=== PATIENT | female | born 1995 | race Caucasian/White ===

== ENCOUNTER 2019-11-20 19:02 | Inpatient (IN) | payer OTHER, SELFPAY ==
[2019-11-20] VITALS (18 sets, daily range): BP systolic 102–131; BP diastolic 41–83; PULSE 76–99; TEMP 36.3; BMI 44.6
[2019-11-20 19:53] LABS: Basophils Percent Auto 0.3 % (0.2-1.2); Eosinophils Absolute Auto 0.1 K/mm3 (0-0.3); Eosinophils Percent Auto 0.9 % (0-4.4); Hematocrit 34.5 % (37.0-47.0); Hemoglobin 11.1 g/dL (12.0-15.0); Immature Granulocyte Absolute 0.12 K/mm3 (0.00-0.031); Immature Granulocyte Percent A 0.9 % (0-0.5); Lymphocytes Absolute Auto 2.76 K/mm3 (0.9-3.2); Lymphocytes Percent Auto 20.5 % (18.3-44.2); Mean Corpuscular HGB Conc 32.2 g/dl (32-36); Mean Corpuscular Hemoglobin 26.9 pg (26-34); Mean Corpuscular Volume 83.5 fl (80-100); Mean Platelet Volume 11.3 fl (7.4-10.4); Monocytes Absolute Auto 0.6 K/mm3 (0.1-0.6); Monocytes Percent Auto 4.7 % (2.6-8.5); Neutrophils Absolute Auto 9.8 K/mm3 (1.3-6.7); Neutrophils Percent Auto 72.7 % (45.5-73.1); Platelet Count Result 216 k/mm3 (150-375); Red Blood Count 4.13 M/mm3 (4.2-5.4); Red Cell Distribution Width 14.8 % (11.5-14.5); White Blood Count 13.5 K/mm3 (4.5-10.0)
[2019-11-20] MEDS: MISOPROSTOL 25 MCG TABLET VAGINAL (20:01)
[2019-11-20 20:45] LABS: HIV 1/2 Ab P24 Ag Result Negative (Negative)
[2019-11-20 20:54] LABS: Rubella IgG Antibody 14.2 IU/ML
--- NOTE | 2019-11-20 21:44 | LDADM ---
This patient, SID CARRANZA, was admitted to Labor/Delivery/Recovery 106 on 11/20/19 at 19:02. Plans for labor, pain management and were discussed with patient. Patient/family oriented to hospital policies and general routines including ID bracelet, bed and alarms, visiting hours, pain management, procedures, bathroom and other care routines, personal items, smoking policy, room service/diet and guest tray routines, security routines, and visiting hours. Patient/Family are encouraged to report perceived risks to care and to ask questions if they do not understand what they are told or what they should do. See OBIX for further documentation.
[2019-11-20 22:17] LABS: Hepatitis B Surface Antigen Negative (Negative)
[2019-11-21] VITALS (232 sets, daily range): BP systolic 86–159; BP diastolic 48–105; PULSE 68–186; TEMP 36.2–37.3; O2SAT 92–100
[2019-11-21] MEDS: OXYTOCIN 30 UNITS/NS 500 ML 30 UNITS/500 ML BAG IV CONT (00:25)
[2019-11-21] MEDS: LACTATED RINGERS 1,000 ML 125 ML IV CONT ×5 (00:26→19:32)
--- NOTE | 2019-11-21 07:36 | WPDHPUPDATE1 ---
History and Physical Update Update Date/Time: 11/21/19 07:36 24 yo G1 at 40w GA who presents for IOL for dates. She endorses good FM. She denies vaginal bleeding or LOF. History and Physical has been reviewed, including an updated exam of the patient. There are NO changes in the patient's condition. Risks, benefits, and alternatives have been discussed and questions answered. Patient agrees to proceed with procedure. A/P: 24 yo G1 at 40w admit to L&D routine admission orders FHT category 1 Rh+ GBS neg cvx 1 on admission, received cytotec PV x1 continue with pitocin for labor induction
[2019-11-21 08:26] LABS: Rapid Plasma Reagin Non-Reactive (NonReactive)
--- NOTE | 2019-11-21 12:03 | WPDANESEPPF ---
Anes - Initial Pre Proc Eval Date/Time: 11/21/19 12:03 Surgeon: Jefferson Lara MD Pre Op Diagnosis: Induction Patient Data Age: 24 Gender: F Height: 1.63 m Weight: 118 kg Last Vital Signs Temp 36.5 C 11/21/19 09:10 Pulse 83 11/21/19 12:00 BP 118/85 11/21/19 12:00 Allergies Allergy/AdvReac Type Severity Reaction Status Date / Time No Known Allergies Allergy Verified 10/31/19 14:29 Home Medications Medication Instructions Recorded Confirmed Type PNV cmb#95-ferrous fumarate-FA 1 tablet PO DAILY 10/31/19 10/31/19 History [] ergocalciferol (vitamin D2) 50,000 unit PO WEEKLY 10/31/19 10/31/19 History [Vitamin D2] Laboratory Tests 11/20/19 11/20/19 11/20/19 19:33 19:33 19:33 WBC 13.5 K/mm3 H K/mm3 (4.5-10.0) RBC 4.13 M/mm3 L M/mm3 (4.2-5.4) Hgb 11.1 g/dL L g/dL (12.0-15.0) Hct 34.5 % L % (37.0-47.0) MCV 83.5 fl fl (80-100) MCH 26.9 pg pg (26-34) MCHC 32.2 g/dl g/dl (32-36) RDW 14.8 % H % (11.5-14.5) Plt Count 216 k/mm3 k/mm3 (150-375) MPV 11.3 fl H fl (7.4-10.4) Immature Gran % (Auto) 0.9 % H % (0-0.5) Neut % (Auto) 72.7 % % (45.5-73.1) Lymph % (Auto) 20.5 % % (18.3-44.2) [place] % (Auto) 4.7 % % (2.6-8.5) Eos % (Auto) 0.9 % % (0-4.4) Baso % (Auto) 0.3 % % (0.2-1.2) Lymph # (Auto) 2.76 K/mm3 K/mm3 (0.9-3.2) [place] # (Auto) 0.6 K/mm3 K/mm3 (0.1-0.6) Eos # (Auto) 0.1 K/mm3 K/mm3 (0-0.3) Baso # (Auto) 0.0 K/mm3 K/mm3 (0.0-0.1) Abs Immat Gran (auto) 0.12 K/mm3 H K/mm3 (0.00-0.031) Absolute Neuts (auto) 9.8 K/mm3 H K/mm3 (1.3-6.7) Absolute Nucleated RBC 0.0 K/mm3 K/mm3 (0.0-0.012) Nucleated RBC % 0.0 % % (0.0-0.2) RPR Non-reactive (NonReactive) Hep Bs Antigen HIV 1&2 Ab/P24 Ag 4thGn Negative (Negative) Rubella IgG Antibody Blood Type Antibody Screen 11/20/19 11/20/19 11/20/19 19:33 19:33 19:33 WBC RBC Hgb Hct MCV MCH MCHC RDW Plt Count MPV Immature Gran % (Auto) Neut % (Auto) Lymph % (Auto) [place] % (Auto) Eos % (Auto) Baso % (Auto) Lymph # (Auto) [place] # (Auto) Eos # (Auto) Baso # (Auto) Abs Immat Gran (auto) Absolute Neuts (auto) Absolute Nucleated RBC Nucleated RBC % RPR Hep Bs Antigen Negative (Negative) HIV 1&2 Ab/P24 Ag 4thGn Rubella IgG Antibody 14.2 IU/ML IU/ML (10 - ) Blood Type A Positive Antibody Screen Negative Patient hx anesthesia problems: none Family hx anesthesia problems: none [facility] Family History Family History (Updated 10/31/19 @ 14:31 by Miles Ochoa RN) Father Diabetes mellitus Mother Bipolar 1 disorder Social History Social History Smoking status: Never smoker Substance use: never Gender identity (if verbalized by the patient): Female Spiritual care concerns: No Anes - Eval Final PreProcedure Day of Procedure 11/21/19 12:03 Patient weight: obese Heart: regular rate and rhythm Lungs: clear to auscultation and normal air movement Airway: Mallampati scale class II Neurological: alert and oriented Last oral intake: >/= 8 hours ASA classification: II Emergent: no Anesthetic plan: proceed Anesthesia type and monitoring: regional epidural Informed Consent: The patient's anesthetic plan and its attendant risks and benefits were discussed with the patient/family/POA. Questions were solicited and answers provid
--- NOTE | 2019-11-21 12:34 | P.PNOB_ITS ---
OB - PN: Subj Subjective Date/time seen: 11/21/19 12:34 Interval history: cx 80/-2 arom clear fhts reassuring OB - PN: Obj Data Labs CBC & Chem 7: 11/20/19 19:33 Labs: Laboratory Results - last 24 hr 11/20/19 11/20/19 11/20/19 19:33 19:33 19:33 WBC 13.5 H RBC 4.13 L Hgb 11.1 L Hct 34.5 L MCV 83.5 MCH 26.9 MCHC 32.2 RDW 14.8 H Plt Count 216 MPV 11.3 H Immature Gran % (Auto) 0.9 H Neut % (Auto) 72.7 Lymph % (Auto) 20.5 [place] % (Auto) 4.7 Eos % (Auto) 0.9 Baso % (Auto) 0.3 Lymph # (Auto) 2.76 [place] # (Auto) 0.6 Eos # (Auto) 0.1 Baso # (Auto) 0.0 Abs Immat Gran (auto) 0.12 H Absolute Neuts (auto) 9.8 H Absolute Nucleated RBC 0.0 Nucleated RBC % 0.0 RPR Non-reactive Hep Bs Antigen HIV 1&2 Ab/P24 Ag 4thGn Negative Rubella IgG Antibody Blood Type Antibody Screen 11/20/19 11/20/19 11/20/19 19:33 19:33 19:33 WBC RBC Hgb Hct MCV MCH MCHC RDW Plt Count MPV Immature Gran % (Auto) Neut % (Auto) Lymph % (Auto) [place] % (Auto) Eos % (Auto) Baso % (Auto) Lymph # (Auto) [place] # (Auto) Eos # (Auto) Baso # (Auto) Abs Immat Gran (auto) Absolute Neuts (auto) Absolute Nucleated RBC Nucleated RBC % RPR Hep Bs Antigen Negative HIV 1&2 Ab/P24 Ag 4thGn Rubella IgG Antibody 14.2 Blood Type A Positive Antibody Screen Negative OB - PN A/P Time Spent With Patient Time: Total time spent is greater than 50% in coordination of care (as documented) at patient's floor/unit and/or counseling patient:
[2019-11-21] MEDS: SODIUM CHLORIDE 0.9% IV 300 ML 600 ML I-UTERINE (14:00)
--- NOTE | 2019-11-21 17:03 | PM.OBPNLAB ---
Pain Control Date/time seen: 11/21/19 17:03 Pain control: epidural Comments: patient is tolerating her induction well. She is still hopeful for a vaginal . She reports adequate pain control with her epidural. Pelvic Exam Dilation (cm): 5 Effacement (%): 80 station: -1 Amniotic membrane status: Ruptured Contractions Monitor mode: Internal Contraction frequency: 2 Contraction pattern: Regular Status status: Category l Comments: recurrent early decelerations noted. FHT still with moderate variability and accelerations. Assessment and Plan Pitocin rate (mU/min): 12 Assessment: induction ongoing Plan: continuous present management Comments: FHT responded well to amnioinfusion perviously. Will give another amnioinfusion. Discussed plan of care and continued labor induction. The patient and myself are still hopeful for a vaginal . Explained that the induction may take time. Pt s/p AROM at 1200. Will monitor for s/sx of chorio.
--- NOTE | 2019-11-21 19:52 | P.PNOB_ITS ---
Pain Control Date/time seen: 11/21/19 19:52 Pain control: epidural Pelvic Exam Dilation (cm): 6 Effacement (%): 80 station: -1 Amniotic membrane status: Ruptured Contractions Monitor mode: Internal Contraction frequency: 2 Contraction pattern: Regular Status status: Category ll Comments: recurrent early decelerations. occasional late deceleration, non- recurrent. Moderate variability. occasional acceleration Assessment and Plan Pitocin rate (mU/min): 8 Assessment: induction ongoing Plan: continuous present management
[2019-11-22] VITALS (37 sets, daily range): BP systolic 108–141; BP diastolic 58–127; PULSE 78–150; RESP 14–16; TEMP 36.4–38.1; O2SAT 99–100
[2019-11-22] MEDS: OXYTOCIN 30 UNITS/NS 500 ML 30 UNITS/500 ML BAG 125 UNITS IV CONT (01:29)
--- NOTE | 2019-11-22 01:50 | PM.OBPRVD ---
OB - Delivery Note Procedure Procedure: Patient pushed for a spontaneous vaginal delivery. The fetus was delivered atraumatically and placed on the maternal abdomen. A nuchal cord x1 was noted and reduced after delivery. The cord was clamped and cut. The cord was double clamped and cut and a segment of cord was collected for cord gases. Cord blood was collected for blood type and Coomb's testing. The placenta delivered spontaneously and was noted to be intact. The perineum was inspected and there was a 1st degree perineal laceration and bilateral labial lacerations. The lacerations was repaired with 3-0 vicryl in the usual fashion. There was an area on the 1st degree laceration that required 2 figure of eight sutures to obtain hemostasis. The uterus was firm and good hemostasis was noted. The patient and fetus were stable in the delivery room. Induction method: per misoprostol protocol Delivery augmentation: pitocin Delivery monitor: internal FHT and internal uterine Route of delivery: Episiotomy description: None Laceration description: Perineal - 1st Degree Delivery repair: vicryl Specimen: No Estimated blood loss (mL): 250 Anesthesia type: Epidural Disposition: floor () Complications: No immediate complications Baby Date of : 11/22/19 Weeks of gestation at delivery: 40 gender: Male Weight (pounds): 8 Weight (ounces): 13 presentation: vertex position: Right Occiput Anterior Placenta delivery description: Spontaneous cord vessel description: Nuchal Cord score one minute: 9 score five minutes: 9
[2019-11-22] MEDS: IBUPROFEN 600 MG TABLET PO ×2 (03:05→09:17)
[2019-11-22] MEDS: BENZOCAINE 20% AER SPR (*SP) 56 GM CAN 1 SPRAY TOPICAL (03:06)
[2019-11-22] MEDS: WITCH HAZEL 40 PADS 1 PAD TOPICAL (03:06)
[2019-11-22] MEDS: MULTIVIT/MIN/PREN/FOL AC/IRON TABLET 1 TAB PO (09:16)
[2019-11-22] MEDS: ACETAMINOPHEN 325 MG TABLET 650 MG PO (14:01)
--- NOTE | 2019-11-22 16:10 | PC.NURSE ---
Consulted with patient, mother states would not latch and has been using a nipple shield for all feedings. Mother will attempt first if unable to latch she will use shield, allowing infant to nurse several minutes then removed shield and attempt to latch without. Discussed nipple shield precautions and possible complications. Instructions given on application and cleaning of nipple shield Reviewed infant feeding cues, frequencies, durations of feeding, milk supply, feeding/elimination flow sheet and signs of adequate intake. Demonstrated stimulation techniques to wake for feeding. Assisted with infant to breast with nipple shield. Reviewed positioning/alignment in football, holding breast in C hold and guided asymmetrical latch on. Infant was able to latch correctly nursing with long draws and freq/occasional swallowing noted. Reviewed milk production and need for additional stimulation for milk supply and need to initiate pumping. Suggested feeding plan to attempt to breast every three hours, before if feeding cues noted. Allow to nurse up to 20 min per breast. Discussed required output, has not had a wet diaper since . Reviewed has a full 24 hours for output. Advised ICP may request infant be supplemented until output increases. Stressed to continue to put infant to breast and then pump. Instructed mother to call out for RN assistance if she is unable to latch infant for feeding or she has discomfort with nursing. Instructed feeding should be initiated three hours from start of last feeding or if feeding cues are noted before. Mother voiced understanding of information shared.
--- NOTE | 2019-11-22 17:59 | PC.NURSE ---
Breast pump provided due to nipple shield use. Instructions given on breast pump care and usage, pumping schedule, nipple care, and collection and storage of breast milk. Encouraged [id number], breast massage and manual expression to stimulate supply. Assessed patient for correct flange size, placement and draw. Patient verbalizes and demonstrates understanding of instructions.
[2019-11-23] MEDS: IBUPROFEN 600 MG TABLET PO (05:16)
[2019-11-23 05:55] LABS: Hematocrit 27.4 % (37.0-47.0); Hemoglobin 8.6 g/dL (12.0-15.0)
--- NOTE | 2019-11-23 08:46 | PM.OBPNVD ---
OB - PN: Subj Subjective Date/time seen: 11/23/19 08:46 Narrative: Pain OK. Would like to go home. OB - PN: Obj Data Labs CBC & Chem 7: 11/23/19 05:25 Labs: Laboratory Results - last 24 hr 11/23/19 05:25 Hgb 8.6 L Hct 27.4 L OB - PN A/P Plan Comments: A: PPD#1, doing well. P: Home to f/u 6 weeks. Exam Psych: Other: AVSS ABD soft, nontender, fundus firm EXT nontender
--- NOTE | 2019-11-23 08:48 | PM.OBDSVD ---
OB - DS: Summary OB Procedures : None OB Procedures Intrapartum: Spontaneous Vag Delivery OB Procedures: : None Time Spent with Patient Time attestation: Total time spent providing and/or coordinating discharge services: DS: Data Data Completed and Pending Pending studies at discharge: Pending at discharge 11/22/19 01:26 Surgical [PTH] Routine Labs on day of discharge: Labs from last 24 hours 11/23/19 05:25 Hgb 8.6 L Hct 27.4 L Discharge Plan Discharge Attending physician on discharge: Rafael Goss Discharging Clinician: Rafael Goss Patient Disposition: Home, Self-Care Activity: pelvic rest Diet: regular Discharge Instructions: Call or return if temperature above 100.4? F, increased abdominal pain, increased vaginal bleeding or any new problems. Stand Alone Forms: General Discharge Information Follow-up/Referrals: Rafael Goss MD [Physician] - (Follow up Dr. Lara in 6 weeks.) Discharge Medications: New ibuprofen 600 mg tablet 600 mg PO Q6H PRN (Reason: cramps) Qty: 30 RF: 0 No Action PNV cmb#95-ferrous fumarate-FA [] 28 mg iron- 800 mcg Tablet 1 tablet PO DAILY RF: 0 ergocalciferol (vitamin D2) [Vitamin D2] 1,250 mcg (50,000 unit) Capsule 50,000 unit PO WEEKLY RF: 0 Date of admission: 11/20/19 19:02 Primary Care Provider: Herman Matute Admitting Provider: Jefferson Lara Attending physician on admission: Jefferson Lara
[2019-11-23 08:50] VITALS: BP 111/69; PULSE 86; RESP 18; TEMP 36.2
[2019-11-23] MEDS: POLYSACCHARIDE IRON COMPLEX 150 MG CAPSULE PO (09:33)
[2019-11-23] MEDS: MULTIVIT/MIN/PREN/FOL AC/IRON TABLET 1 TAB PO (09:34)
[2019-11-23] MEDS: DOCUSATE SODIUM 100 MG CAPSULE PO (09:34)
--- NOTE | 2019-11-23 13:20 | PC.NURSE ---
Patient viewed the discharge video Mother & Baby Care, The First Two Weeks . Patient was given the opportunity and encouraged to ask questions. Patient verbalized understanding of information shared and has been given the mother/baby guide for home reference.
--- NOTE | 2019-11-23 15:45 | WPDANLDPN2 ---
Anes-Prog Note L&D Date/Time: 11/23/19 15:45 Comfortable throughout: labor and delivery Neuraxial method: epidural Epidural/Spinal procedure site: clean & non-tender Neuro status: Neuro function grossly intact. Cardiovascular status: normal Respiratory status: normal Airway patency: baseline Mental status: baseline Post-Op hydration status: normal Vital Signs: Last Vital Signs Temp 36.2 C L 11/23/19 08:50 Pulse 86 11/23/19 08:50 Resp 18 11/23/19 08:50 BP 111/69 11/23/19 08:50 Pulse Ox 99 11/22/19 21:40 Pain score (VAS): 0/10. Patient resting in bed at time of assessment, appears comfortable. Support person at bedside. I/O: Intake & Output 11/22/19 11/23/19 11/23/19 23:59 07:59 15:59 Intake Total 240 Balance 240 Post-procedural complaints: none Patient feedback: Patient satisfied with anesthetic care.
[2019-11-25 08:40] VITALS: BP 123/77; PULSE 95; RESP 18; TEMP 36.9
== END 2019-11-23 13:40 | disposition home or self-care (01) | DRG 806 ==
LOC: ANHLDR 11-21 10:43 → ANHOB2 11-23 08:50 → ANHLDR 11-25 19:51 → ANHOB2 11-25 19:51
PROVIDERS: Admitting Provider Student in an Organized Health Care Education/Training Program; PCP Internal Medicine; Visit Provider Obstetrics & Gynecology
DX: O99.214 Obesity complicating childbirth (principal); O75.2 Pyrexia during labor, not elsewhere classified; Z37.0 Single live birth; O76 Abnormality in fetal heart rate and rhythm complicating labor and delivery; Z23 Encounter for immunization; Z3A.40 40 weeks gestation of pregnancy; O70.0 First degree perineal laceration during delivery; O69.81X0 Labor and delivery complicated by cord around neck, without compression, not applicable or unspecified; E66.9 Obesity, unspecified
CPT/HCPCS: 36415; 85014; 85018; 85025; 86592; 86703; 86762; 86850; 86900; 86901; 87340; 88307; A9270; G0432; J2590; J2795; J3010; J7030; J7120

== ENCOUNTER 2019-11-28 11:12 | Outpatient (RCR) | payer OTHER, SELFPAY ==
--- NOTE | 2019-12-12 13:14 | PC.NURSE ---
Pt seen on 11-27-2019 IN 1100 OUT 1150 HISTORY: Pt. delivered at [facility] at 39 weeks. Infant had no complications after delivery. Mother had no complications after delivery. is now 5 days old. appears to be well cared for. Infant has been seen by ICP as scheduled. last seen by ICP on 11/26/2019. Mother reports: began using nipple shield within the first few feedings due to unable to latch and draw nipple in deeply. Infant will latch at times without shield on right breast. Infant was supplemented after most feedings. At follow up visit infant had weight loss, mother began pumping and bottle feeding. Infant was seen by ICP and had a weight gain. Mother is pumping 30 every 3 hours, is taking 60 mls EBM/formula by bottle each feeding. Mother wishes: To have breatfeed with or without shield and increase milk supply. Currently at 6 wets per day and 4 yellow seedy stools per day. weight: 8#13 Follow up visit weight: 8#0 Last Weight: 8#7 Pre feeding weight: 4006 Post feeding weight: 4026 OBSERVATION: Mother puts infant to breast using cradle positioning, allowing to latch shallow to nipple. makes eager attempts and is unable to draw nipple in. Suggested to use shield. Suggested shield use. Discussed nipple shield precautions and possible complications. Instructions given on application and cleaning of shield. Patient able to return demonstration on proper application of shield. Discussed the need to continue regular pumping continues to nurse with the shield, until milk supply is established and infant is able to gain appropriate weight without supplementation. Patient verbalizes understanding. With shield in place. Reviewed positioning/alignment in cross cradle, holding breast in U hold and guided asymmetrical latch on. Discussed the rational for each. given a few sucks to bottle then transitioned to breast. was able to latch correctly. nursed eagerly, with steady draws and frequent swallowing noted. Reviewed signs of a correct latch, effective nursing and suck swallow ratio. Infant was able to maintain latch without discomfort to mother. Nipple care reviewed. Demonstrated breast compressions to assist with milk flow and how to adjust latch more deeply while feeding. Mother was able to demonstrated both. Infant nursed on both breasts, mother was able to switch infant to other breast independently. PLAN: Mother will follow above feeding plan using techniques for deeper latch and work to keep infant awake and nursing effectively. Mother will continue to offer supplementation after each feeding and work with increasing milk supply. Discussed when/how to recognize is ready to begin weaning from supplementation. Mother will call with further questions or concerns.
== END 2020-02-07 08:58 | disposition home or self-care (01) ==
LOC: ANHOBOP 11:12
PROVIDERS: PCP Internal Medicine; Visit Provider Pediatrics
DX: R63.3 Feeding difficulties (principal)
CPT/HCPCS: 99212; G0463